=== PATIENT | female | born 1945 | race Caucasian/White ===

== ENCOUNTER → 2016-12-03 | Outpatient (CLI) | payer MEDICARE, MEDICAID ==
[~2016-12-03] MED LIST: ACET-62 PO; AMLO5TAB2 PO; ASCO500T9 PO; ASPI-557 PO; ATOR40TA PO; CALC-747 PO; CARV3.12 PO; CHOL200029 PO; CLOP75TA PO; CYAN100022 PO; DEXT15DR5 BOTH EYES; DICL100G5 TOP; EXEN2VIA SQ; FERR324T4 PO; FURO40TA5 PO; FURO80TA3 PO; GABA-192 PO; INSU100V SQ; INSU100V12 SQ; LEVO50TA4 PO; POTA-81 PO; PREG200C PO; PROP15DR BOTH EYES; SERT-77 PO; VALS160T25 PO; VIT1CAPS47 PO
--- NOTE | 2016-12-04 10:55 | DI ---
Indication: ITS.REASON: I83.029 LEG ULCER; I25.10 ATHSCL HD OF [place] CORONARY ARTERY PROCEDURE: US ARTERIAL EXTREMITY LOWER LT: Comparison: June 10, 2014 Technique: Grayscale color and duplex Doppler imaging was performed of the arterial tree of the left legs. Findings: LEFT LEG (cm/sec) Common Femoral 112 Superficial Femoral Proximal 102 Mid 64.9 Distal 44.4 Popliteal 54.2 YELITZA-prox 27.9 PACKAGING DESIGN ENGINEER-prox 83.3 YELITZA-dist 143 PACKAGING DESIGN ENGINEER-dist 86.2 There are dampened waveforms seen in the left lower extremity arteries, particularly the calf arteries but no velocity elevation or occlusion as was seen previously. IMPRESSION: 1. Interval resolution of the prior anterior tibial artery occlusion. 2. Diffuse atherosclerotic plaque with mild stenosis throughout the calf arteries. .
== END ==
LOC: IMA 09:26
PROVIDERS: ATTEND Family Medicine
DX: I70.202 Unspecified atherosclerosis of native arteries of extremities, left leg (principal); I25.10 Atherosclerotic heart disease of native coronary artery without angina pectoris

== ENCOUNTER 2017-03-03 16:02 | Inpatient (IN) ==
--- NOTE | 2017-03-03 17:40 | Emergency Department Report ---
SOB HPI - General Chief Complaint: Shortness of Breath/Dyspnea Stated Complaint: SOB Time Seen by Provider: 03/03/17 16:08 Source: patient Mode of arrival: wheelchair Limitations: no limitations - History of Present Illness She lives at [facility]. Today had onset of dyspnea about 1130 am. She normally does wear O2 overnight but not during the day. Staff did have to apply O2 due to sats in the 70s. Was placed on 2L O2 per NC and sats are up to 95%. She also was c/o some chest pressure. Does have a history of CHF and has had a heart cath in with stent placement per Dr Marie. Is currently taking Lasix BID. Complaint: shortness of breath Onset (ago): hour(s) (for the last 6 hours) Severity: moderate Consistency/Duration: constant Relieving factors: nothing Exacerbating factors: nothing Known history of: congestive heart failure Associated symptoms: chest pain Treatment prior to arrival: none - Related Data Home Medications Medication Instructions Recorded Confirmed Sertraline HCl [Zoloft] 200 mg PO DAILY #0 02/01/11 03/03/17 Aspirin [Aspir 81] 81 mg PO DAILY #0 07/08/14 03/03/17 Acetaminophen 1,500 mg PO HS #0 06/08/16 03/03/17 Calcium Carbonate/Vitamin D3 1 tab PO BID #0 06/08/16 03/03/17 [Calcium 600-Vit D3 400 Tablet] Dextran 70/Hypromellose 1 drop BOTH EYES DAILY PRN #0 06/08/16 03/03/17 [Artificial Tears Eye Drops] Diclofenac Sodium [Voltaren] 1 applic TOP BID PRN #0 06/08/16 03/03/17 Exenatide Weekly Inj [Bydureon] 2 mg SQ Q7D #0 06/08/16 03/03/17 Levothyroxine Sodium [Synthroid] 50 mcg PO ACB #0 06/08/16 03/03/17 Pregabalin [Lyrica] 200 mg PO TID #0 06/08/16 03/03/17 Valsartan 160 mg PO DAILY #0 06/08/16 03/03/17 Cyanocobalamin (Vitamin B-12) 1,000 mcg SL DAILY #0 08/09/16 03/03/17 [Vitamin B-12] Furosemide 80 mg PO WB #0 tab 11/16/16 03/03/17 Vit C/E/Zn/Coppr/Lutein/Zeaxan 1 tab PO BID #0 11/16/16 03/03/17 [Preservision Areds 2 Softgel] Carvedilol [Coreg] 3.125 mg PO WB 03/03/17 03/03/17 Cholecalciferol (Vitamin D3) 2,000 unit PO DAILY 03/03/17 03/03/17 [Vitamin D3] Ferrous Sulfate [Ferrous Sulfate] 325 mg PO DAILY 03/03/17 03/03/17 Furosemide [Lasix] 60 mg PO WS 03/03/17 03/03/17 Insulin Aspart [NovoLOG] 6 unit SQ TIDWM 03/03/17 03/03/17 Potassium Chloride ER Tab [K-Dur] 20 meq PO DAILY 03/03/17 03/03/17 Previous Rx's Medication Instructions Recorded Ascorbic Acid [Vitamin C] 500 mg PO WB #30 tab 10/18/16 Atorvastatin [Lipitor] 40 mg PO HS #30 tab 10/18/16 Clopidogrel Bisulfate [Plavix] 75 mg PO DAILY #100 tab 10/18/16 Insulin Detemir [Levemir] 15 unit SQ HS #1 vial 10/18/16 Insulin Detemir [Levemir] 20 unit SQ AMI #1 vial 10/18/16 Allergies Allergy/AdvReac Type Severity Reaction Status Date / Time Iodinated Contrast Media - Allergy Severe WHEEZING Verified 03/03/17 16:28 Oral and niacin Allergy Unknown Verified 03/03/17 16:28 pravastatin [From Pravachol] Allergy Unknown Verified 03/03/17 16:28 Review of Systems Constitutional: Denies: fever, chills, weakness Cardiovascular: Reports: chest pain, dyspnea on exertion. Denies: palpitations , edema Respiratory: Denies: cough, dyspnea, wheezes Gastrointestinal: Denies: abdominal pain, nausea, vomiting, diarrhea, constipation Neurological: Denies: headache, weakness, numbness, paresthesias PFSH Patient Stated Medical History Cataracts Yes Other HEENT Yes: WEARS GLASSES Angina Yes Congestive Heart Failure Yes Coronary Artery Disease Yes Hypertension Yes Myocardial Infarction Yes Chronic Obstructive Pulmonary Yes Disease (COPD) Pneumonia Yes Sleep Apnea Yes: WEARS BIPAP Diabetes Mellitus Type 2 Yes Gastroesophageal Reflux Yes Disease Hx Urinary Tract Infection Yes Anemia Yes Osteoarthritis Yes Anesthesia Reactions Yes: WAKES UP CRYING Blood Transfusions Yes Depression Yes Surgical History: Heart cath 10/2016 with stent placement - Social History Smoking status: Never smoker Substance use type: does not use Alcohol intake frequency: does not drink Physical Exam - General General appearance: alert, in no apparent distress - Normal Exams: Neck:: Full range of motion, without adenopathy, JVD, bruits or thyromegaly Chest/Respirations:: Clear all ramos, with good airflow, and symmetry bilaterally Cardiovascular:: Regular rate and rhythm, without murmur or gallop, Pulses 2+ all extremities, capillary refill, <2 seconds all extremities Abdomen:: Bowel sounds positive, soft, non-tender, non-distended, no hepatosplenomegaly, masses or bruits noted Lymphatic:: No lymphadenopathy, or lymphedema noted Integumentary:: No rashes, hives, or bruising noted Neurological:: Patient is alert, and oriented Psychiatric:: Patient exhibits, appropriate attention, emotion and affect - Cardiovascular Cardiovascular exam: Present: normal heart sounds, other (No pedal edema) Course Vital Signs Temperature 97.9 F 03/03/17 16:02 Pulse Rate 56 L 03/03/17 16:02 Respiratory Rate 24 03/03/17 16:02 Blood Pressure 149/67 H 03/03/17 16:02 Pulse Oximetry 95 03/03/17 16:02 Temperature 97.9 F 03/03/17 16:02 Pulse Rate 58 L 03/03/17 18:45 Respiratory Rate 24 03/03/17 16:02 Blood Pressure 176/79 H 03/03/17 18:45 Pulse Oximetry 95 03/03/17 18:45 Shortness of Breath/Dyspnea - [facility] Narrative Medical decision making narrative: Given elevation of BNP at 10,00, increased O2, chest xray showing pulmonary edema, did speak with Robyn Waggoner APRN. Will admit at this time for IV diuresis. - Differential Diagnosis Likely: congestive heart failure, community acquired pneumonia, asthma with exacerbation, pulmonary embolism - Lab Data Attestation: I reviewed the patient's lab results. Result diagrams: 03/03/17 16:37 03/03/17 16:37 Lab Results 03/03/17 03/03/17 03/03/17 Range/Units 16:37 16:37 16:37 WBC 7.6 (4.5-11.0) T/MM3 RBC 3.55 L (4.00-5.20) M/MM3 Hgb 10.4 L (12-16) GM/DL Hct 33.5 L (36-46) % MCV 94.4 (80-100) UM3 MCH 29.3 (26-34) UUG MCHC 31.0 (31-37) GM/DL RDW Std Deviation 48.0 (36.9-50.2) FL Plt Count 117 L (130-400) T/MM3 MPV 11.1 (9.4-12.4) UM3 Immature Gran % (Auto) 1.5 H (0.0-0.5) % Neut % (Auto) 72.4 H (33-66) % Lymph % (Auto) 13.2 L (23-45) % Buchanan % (Auto) 10.9 H (0-9.0) % Eos % (Auto) 1.9 (0-4) % Baso % (Auto) 0.1 (0-2) % Neut # 5.5 (1.8-7.7) T/MM3 Lymph # 1.0 (1-4.8) T/MM3 Buchanan # 0.8 (0-0.8) T/MM3 Eos # 0.1 (0-0.5) T/MM3 Baso # 0.0 (0-0.2) T/MM3 Abs Immat Gran (auto) 0.11 H (0.00-0.03) T/MM3 Turbidity < 20 (0-20) Sodium 144 (134-144) MEQ/L Potassium 4.1 (3.6-5) MEQ/L Chloride 100 (98-107) MEQ/L Carbon Dioxide 31 H (22-30) MEQ/L Anion Gap 13 (5-15) MEQ/L BUN 47.0 H (7-17) MG/DL Creatinine 1.3 H (0.7-1.2) MG/DL GFR Calculation 40 BUN/Creatinine Ratio 36 H (6-26) RATIO Glucose 255 H (65-110) MG/DL Calculated Osmolality 298 H (261-280) MOSM/KG Calcium 9.6 (8.4-10.2) MG/DL Total Bilirubin 0.30 (0.20-1.30) MG/DL Icterus Index < 2 (0-7) AST 9 L (14-36) U/L ALT 24 (9-52) U/L Alkaline Phosphatase 122 (38-126) U/L Troponin I < 0.012 (0-0.12) ng/ml B-Natriuretic Peptide 14610 H (0-175) pg/mL Total Protein 6.5 (6.3-8.2) G/DL Albumin 3.7 (3.5-5.0) G/DL Globulin 2.8 (2.4-3.6) G/DL Albumin/Globulin Ratio 1.3 (1.1-2.2) RATIO Specimen Hemolysis < 15 (0-25) - Radiology Data Attestation: I reviewed the patient's radiology results. Chest xray:moderate to severe pulmonary edema Disposition Clinical Impression: Congestive heart failure Qualifiers: Congestive heart failure type: diastolic Congestive heart failure chronicity: acute on chronic Qualified Code(s): I50.33 - Acute on chronic diastolic ( congestive) heart failure Disposition: 02 To [facility] Condition: Stable Time of Disposition: 18:43 - Seen By: midlevel
[2017-03-03] MEDS ORDERED: SALINE FLUSH 10ml SYRINGE IVF PRN (19:37)
[2017-03-03] MEDS ORDERED: INSULIN DETEMIR 100unit/ml INJECTION SQ SCH (19:37)
[2017-03-03] MEDS ORDERED: REFRESH CLASSIC Eye Drops 0.4ml EACH EYE PRN (20:06)
[2017-03-03] MEDS: CALCIUM 600 + VIT D 400 TABLET PO SCH (21:12)
[2017-03-03] MEDS: ATORVASTATIN 40 MG TABLET PO SCH (21:13)
[2017-03-03] MEDS: PREGABALIN 100 MG CAPSULE PO SCH (21:13)
[2017-03-03] MEDS: ACETAMINOPHEN 500 MG TABLET PO SCH (21:13)
[2017-03-03] MEDS: INSULIN DETEMIR 100unit/ml INJECTION SQ SCH (21:35)
[2017-03-03] MEDS ORDERED: INSULIN ASPART 100unit/ml INJECTION SQ ONE ×2 (22:05→23:18)
[2017-03-04] MEDS ORDERED: INSULIN ASPART 100unit/ml INJECTION SQ ONE ×2 (00:50→12:05)
[2017-03-04] MEDS: LEVOTHYROXINE 50 MCG TABLET PO SCH (06:10)
--- NOTE | 2017-03-04 08:19 | XRay Report ---
INDICATION: dyspnea PROCEDURE: CHEST 2-VIEWS UPRIGHT (PA & LAT) Encounter: Initial COMPARISON: October 15, 2016 FINDINGS: Worsening bilateral patchy airspace opacities. The costophrenic angles are not seen on the lateral view and small pleural effusions cannot be excluded. No pneumothorax. Cardiac silhouette remains mild to moderately enlarged. Mediastinal contours are grossly stable. Pulmonary vascular congestion has worsened. Impression: Worsening severe pulmonary edema, possibly due to CHF. .
[2017-03-04] MEDS: SALINE FLUSH 10ml SYRINGE IVF PRN ×3 (09:10→19:56)
[2017-03-04] MEDS: ASCORBIC ACID 500 MG TABLET PO SCH (09:13)
[2017-03-04] MEDS: ASPIRIN *EC* 81 MG TABLET PO SCH (09:13)
[2017-03-04] MEDS: CALCIUM 600 + VIT D 400 TABLET PO SCH ×2 (09:14→21:23)
[2017-03-04] MEDS: MULTI-VITAMIN + MINERAL TABLET PO SCH ×2 (09:14→21:23)
[2017-03-04] MEDS: CLOPIDOGREL 75 MG TABLET PO SCH (09:14)
[2017-03-04] MEDS: SERTRALINE 100 MG TABLET PO SCH (09:14)
[2017-03-04] MEDS: CARVEDILOL 3.125 MG TABLET PO SCH (09:15)
[2017-03-04] MEDS: PREGABALIN 100 MG CAPSULE PO SCH ×3 (09:15→21:23)
[2017-03-04] MEDS: VALSARTAN 160 MG TABLET PO SCH (09:15)
[2017-03-04] MEDS: INSULIN ASPART 100unit/ml INJECTION SQ SCH ×3 (09:23→18:03)
--- NOTE | 2017-03-04 10:55 | Cardiology History & Physical ---
History of Present Illness Chief complaint: dyspnea HPI: Atiya is a 71 year olf female who is well known to Dr. Marie who has a history of CAD with bare metal stent to the RCA on 10/07/16 and 2 drug-eluting stents to the LAD on 11/16/16. She also has carotid artery stenosis, HTN, HLD, and DM II. She lives at [facility] and had had onset of dyspnea about 1130 am yeaterday. She normally does wear O2 overnight but not during the day. Staff had to apply O2 due to sats in the 70s. Was placed on 2L O2 per NC and sats are up to 95%. She also c/o some chest pressure. Does have a history of CHF and is currently taking Lasix BID. She was admitted to Dr. Marie for observation and diuresis. Atiya is seen in her room on Medical this morning. She reports SOA really began last Tuesday with increasing O2 requirements since then. She denies chest pain or pressure, palpitations, dizziness or near syncope. She states she had an elevated temperature a few days ago and was told she had a urinary infection. She reports her blood sugars have been higher than she likes, some even over 200, but the nursing staff doesn't seem too concerned about this. Review of Systems - Constitutional Constitutional: Present: fever(s) (a few days ago). Absent: chills, fatigue, lethargy, weakness - EENMT Eyes: Absent: change in vision Balance: Absent: vertigo Mouth/Throat: Absent: sore throat - Cardiovascular Cardiovascular: Absent: chest pain, palpitations, syncope Vascular: Present: pedal edema - Respiratory Respiratory: Present: dyspnea. Absent: cough - Gastrointestinal Gastrointestinal: Absent: diarrhea, nausea, vomiting - Genitourinary Genitourinary: Present: as per HPI - Integumentary/Breasts Integumentary: Absent: rash - Neurological Neurological: Absent: dizziness PFSH Patient Stated Medical History Cataracts Yes Other HEENT Yes: WEARS GLASSES Angina Yes Congestive Heart Failure Yes Coronary Artery Disease Yes Hypertension Yes Myocardial Infarction Yes Mixed hyperlipidemia Yes Pneumonia Yes Sleep Apnea Yes: WEARS BIPAP Diabetes Mellitus Type 2 Yes Gastroesophageal Reflux Yes Disease Hx Urinary Tract Infection Yes Anemia Yes Osteoarthritis Yes Cellulitis Yes Anesthesia Reactions Yes: WAKES UP CRYING Blood Transfusions Yes Depression Yes Surgical History: Heart cath 10/07/16 bare metal Stent RCA. 11/16/2016 with drug- eluting stents X2 LAD. Total hysterectomy. Tonsilectomy Family History: DM Type II - Father and Mother CAD- Mother - Social History Smoking status: Never smoker Substance use type: does not use Alcohol intake frequency: does not drink Housing: correction Current occupational status: retired Current residence: [place] Medications Home Medications Medication Instructions Recorded Confirmed Type Sertraline HCl [Zoloft] 200 mg PO DAILY #0 02/01/11 03/03/17 History Aspirin [Aspir 81] 81 mg PO DAILY #0 07/08/14 03/03/17 History Acetaminophen 1,500 mg PO HS #0 06/08/16 03/03/17 History Calcium Carbonate/Vitamin D3 1 tab PO BID #0 06/08/16 03/03/17 History [Calcium 600-Vit D3 400 Tablet] Dextran 70/Hypromellose 1 drop BOTH EYES DAILY PRN #0 06/08/16 03/03/17 History [Artificial Tears Eye Drops] Diclofenac Sodium [Voltaren] 1 applic TOP BID PRN #0 06/08/16 03/03/17 History Exenatide Weekly Inj [Bydureon] 2 mg SQ Q7D #0 06/08/16 03/03/17 History Levothyroxine Sodium [Synthroid] 50 mcg PO ACB #0 06/08/16 03/03/17 History Pregabalin [Lyrica] 200 mg PO TID #0 06/08/16 03/03/17 History Valsartan 160 mg PO DAILY #0 06/08/16 03/03/17 History Cyanocobalamin (Vitamin B-12) 1,000 mcg SL DAILY #0 08/09/16 03/03/17 History [Vitamin B-12] Vit C/E/Zn/Coppr/Lutein/Zeaxan 1 tab PO BID #0 11/16/16 03/03/17 History [Preservision Areds 2 Softgel] Carvedilol [Coreg] 3.125 mg PO WB 03/03/17 03/03/17 History Cholecalciferol (Vitamin D3) 2,000 unit PO DAILY 03/03/17 03/03/17 History [Vitamin D3] Ferrous Sulfate 325 mg PO DAILY 03/03/17 03/03/17 History Insulin Aspart [NovoLOG] 6 unit SQ TIDWM 03/03/17 03/03/17 History Potassium Chloride ER Tab [K-Dur] 20 meq PO DAILY 03/03/17 03/03/17 History Allergies Allergy/AdvReac Type Severity Reaction Status Date / Time Iodinated Contrast Media - Allergy Severe WHEEZING Verified 03/03/17 16:28 Oral and niacin AdvReac Unknown Hot Verified 03/04/17 14:00 Flushing pravastatin [From Pravachol] AdvReac Unknown Muscle Pain Verified 03/04/17 14:00 Exam Vital signs: Temp Pulse Resp BP Pulse Ox 96.2 F L 63 18 162/79 H 95 03/04/17 08:00 03/04/17 08:00 03/04/17 08:00 03/04/17 08:00 03/04/17 08:00 - Constitutional no acute distress, morbidly obese, cooperative - Routine HEENT Exam ENT: Present: mucous membranes moist - Routine Neck Exam Absent: JVD, carotid bruit - Routine Chest/Breast/Axilla Exam Chest wall: Absent: tenderness - Routine Respiratory Exam Present: CTA bilaterally. Absent: rales, wheezes - Routine Cardiovascular Exam Present: no murmur, bradycardia - Routine Abdominal Exam Present: soft, normoactive bowel sounds, non tender - Routine Extremities Exam Present: no edema - Routine Skin Exam Present: intact - Routine Neurological Exam Present: alert, oriented X3 - Routine Psychiatric Exam Present: normal affect, normal thought process Results 03/06/17 04:48 03/06/17 04:48 Cardiac Enzymes 03/04/17 Range/Units 04:52 B-Natriuretic Peptide 49669 H (0-175) pg/mL Coagulation 03/04/17 Range/Units 04:52 B-Natriuretic Peptide 24735 H (0-175) pg/mL CBC 03/04/17 Range/Units 04:52 WBC 7.3 (4.5-11.0) T/MM3 RBC 3.45 L (4.00-5.20) M/MM3 Hgb 10.1 L (12-16) GM/DL Hct 32.4 L (36-46) % Plt Count 121 L (130-400) T/MM3 Neut # 5.1 (1.8-7.7) T/MM3 Lymph # 1.3 (1-4.8) T/MM3 Davis # 0.8 (0-0.8) T/MM3 Eos # 0.1 (0-0.5) T/MM3 Baso # 0.0 (0-0.2) T/MM3 Comprehensive Metabolic Panel 03/04/17 Range/Units 04:52 Sodium 147 H (134-144) MEQ/L Potassium 3.5 L (3.6-5) MEQ/L Chloride 102 (98-107) MEQ/L Carbon Dioxide 32 H (22-30) MEQ/L BUN 47.0 H (7-17) MG/DL Creatinine 1.3 H (0.7-1.2) MG/DL Glucose 101 (65-110) MG/DL Calcium 9.8 (8.4-10.2) MG/DL Intake and Output 03/03/17 03/04/17 03/04/17 22:59 06:59 14:59 Intake Total 800 / 800 Output Total 1100 / 1100 Balance -300 / -300 Intake: Oral 800 / 800 Output: Urine 0 / 0 Urine Amount (Catheter) 1100 / 1100 Other: # Incontinent Voids 2 # Incontinent Bowel 1 Movements Weight 313 lb 11.485 oz 311 lb 4.683 oz Patient Weight 03/05/17 06:59 Weight 311 lb 4.683 oz Laboratory Results - last 48 hr 03/03/17 03/03/17 03/03/17 16:37 16:37 16:37 WBC 7.6 RBC 3.55 L Hgb 10.4 L Hct 33.5 L MCV 94.4 MCH 29.3 MCHC 31.0 RDW Std Deviation 48.0 Plt Count 117 L MPV 11.1 Immature Gran % (Auto) 1.5 H Neut % (Auto) 72.4 H Lymph % (Auto) 13.2 L Davis % (Auto) 10.9 H Eos % (Auto) 1.9 Baso % (Auto) 0.1 Neut # 5.5 Lymph # 1.0 Davis # 0.8 Eos # 0.1 Baso # 0.0 Abs Immat Gran (auto) 0.11 H Turbidity < 20 Sodium 144 Potassium 4.1 Chloride 100 Carbon Dioxide 31 H Anion Gap 13 BUN 47.0 H Creatinine 1.3 H GFR Calculation 40 BUN/Creatinine Ratio 36 H Glucose 255 H Glucometer Calculated Osmolality 298 H Calcium 9.6 Magnesium Total Bilirubin 0.30 Icterus Index < 2 AST 9 L ALT 24 Alkaline Phosphatase 122 Troponin I < 0.012 B-Natriuretic Peptide 43851 H Total Protein 6.5 Albumin 3.7 Globulin 2.8 Albumin/Globulin Ratio 1.3 Specimen Hemolysis < 15 03/03/17 03/03/17 03/04/17 21:31 23:07 00:43 WBC RBC Hgb Hct MCV MCH MCHC RDW Std Deviation Plt Count MPV Immature Gran % (Auto) Neut % (Auto) Lymph % (Auto) Davis % (Auto) Eos % (Auto) Baso % (Auto) Neut # Lymph # Davis # Eos # Baso # Abs Immat Gran (auto) Turbidity Sodium Potassium Chloride Carbon Dioxide Anion Gap BUN Creatinine GFR Calculation BUN/Creatinine Ratio Glucose Glucometer 286 257 230 Calculated Osmolality Calcium Magnesium Total Bilirubin Icterus Index AST ALT Alkaline Phosphatase Troponin I B-Natriuretic Peptide Total Protein Albumin Globulin Albumin/Globulin Ratio Specimen Hemolysis 03/04/17 03/04/17 03/04/17 04:52 04:52 04:52 WBC 7.3 RBC 3.45 L Hgb 10.1 L Hct 32.4 L MCV 93.9 MCH 29.3 MCHC 31.2 RDW Std Deviation 47.7 Plt Count 121 L MPV 11.6 Immature Gran % (Auto) 1.0 H Neut % (Auto) 69.5 H Lymph % (Auto) 17.2 L Davis % (Auto) 10.7 H Eos % (Auto) 1.5 Baso % (Auto) 0.1 Neut # 5.1 Lymph # 1.3 Davis # 0.8 Eos # 0.1 Baso # 0.0 Abs Immat Gran (auto) 0.07 H Turbidity < 20 Sodium 147 H Potassium 3.5 L Chloride 102 Carbon Dioxide 32 H Anion Gap 13 BUN 47.0 H Creatinine 1.3 H GFR Calculation 40 BUN/Creatinine Ratio 36 H Glucose 101 Glucometer Calculated Osmolality 294 H Calcium 9.8 Magnesium 2.3 Total Bilirubin Icterus Index < 2 AST ALT Alkaline Phosphatase Troponin I B-Natriuretic Peptide 81968 H Total Protein Albumin Globulin Albumin/Globulin Ratio Specimen Hemolysis < 15 03/04/17 03/04/17 04:52 06:16 WBC RBC Hgb Hct MCV MCH MCHC RDW Std Deviation Plt Count MPV Immature Gran % (Auto) Neut % (Auto) Lymph % (Auto) Davis % (Auto) Eos % (Auto) Baso % (Auto) Neut # Lymph # Davis # Eos # Baso # Abs Immat Gran (auto) Turbidity Sodium Potassium Chloride Carbon Dioxide Anion Gap BUN Creatinine GFR Calculation BUN/Creatinine Ratio Glucose Glucometer 135 Calculated Osmolality Calcium Magnesium Total Bilirubin Icterus Index AST ALT Alkaline Phosphatase Troponin I < 0.012 B-Natriuretic Peptide Total Protein Albumin Globulin Albumin/Globulin Ratio Specimen Hemolysis < 15 - Imaging and Cardiology Echo: pending EKG results: image reviewed Imaging & Cardiology Narrative: Date of Exam: 03/03/17 Ordering Provider: Grace Dallas APRN Type of Exam(s): XR chest 2V Reason for Exam(s): dyspnea INDICATION: dyspnea PROCEDURE: CHEST 2-VIEWS UPRIGHT (PA & LAT) Encounter: Initial COMPARISON: October 15, 2016 FINDINGS: Worsening bilateral patchy airspace opacities. The costophrenic angles are not seen on the lateral view and small pleural effusions cannot be excluded. No pneumothorax. Cardiac silhouette remains mild to moderately enlarged. Mediastinal contours are grossly stable. Pulmonary vascular congestion has worsened. Impression: Worsening severe pulmonary edema, possibly due to CHF. 03/04/17 11:41 - EKG Interpretation EKG: sinus rhythm EKG shows: bradycardia EKG interpretations - Dysrhythmias Sinus rhythms and dysrhythmias: sinus rhythm - Blocks, axis, hypertrophy, ST abn QRS axis and voltage: left axis deviation (-30 to -90) Chamber hypertrophy or enlargement: left ventricular hypertrophy or enlargement (LVE) Hospital Course Hospital course: Recommendation After examining the patient I agree with the above assessment. I am involved in the formulation of the patient's plan of care. DVT Prophylaxis: Lovenox Assessment and Plan (1) Diastolic CHF Start date: 03/03/17 Problem details: EF 65% Status: Acute Bumex 2mg IV Q6H for diuresis. Huntley cath for accurate I&Os. Daily Weight. Monitor Renal and Electrolytes. Pain denies chest pain but has diabetes. Serial troponin levels. EKG with nonspecific STT changes (2) Atherosclerotic heart disease of [place] coronary artery without angina pectoris Status: Chronic Bare metal stent to the RCA on 10/07/16 and 2 drug-eluting stents to the LAD on . Continue dual anti-platelet therapy with Plavix and Aspirin. (3) Essential (primary) hypertension Status: Chronic Poor control. Continue Diovan. Cannot increase Coreg as is bradycardic, will add Amlodipine 5mg daily. increase to 10mg in am (4) Mixed hyperlipidemia Status: Chronic Continue Atorvastatin (5) Type 2 diabetes mellitus without complications Status: Chronic Continue home insulin. Will give additional as needed for BGMs >200 (6) Occlusion and stenosis of unspecified carotid artery Status: Chronic Carotid doppler scheduled for 06/08/17 Sepsis Assessment - Evaluation Sepsis screening result: No Definite Risk - Focused Exam Vital Signs Temp Pulse Resp BP Pulse Ox 03/04/17 08:00 96.2 F L 63 18 162/79 H 95 03/04/17 00:00 97.3 F 54 L 20 168/61 H 93
[2017-03-04] MEDS ORDERED: AMLODIPINE 5 MG TABLET PO SCH (12:00)
[2017-03-04] MEDS: ENOXAPARIN 40 MG/0.4 ML INJECTION SQ SCH (12:53)
[2017-03-04] MEDS ORDERED: PNEUMOCOCCAL 23 VACCINE 0.5ml INJECTION IM ONE (13:09)
[2017-03-04] MEDS ORDERED: AMLODIPINE 5 MG TABLET PO ONE (17:58)
--- NOTE | 2017-03-04 19:49 | Echocardiogram ---
DATE OF PROCEDURE 03/04/2017 INDICATION This is a two-dimensional echo with spectral Doppler, color-flow, and M-mode. It was obtained in a patient with shortness of breath. DESCRIPTION OF PROCEDURE Left atrium is dilated. Left ventricular end-diastolic dimension is normal. Left ventricular wall thickness is increased. LV systolic function is normal with ejection fraction of about 50% to 55%. Right atrium is normal. Right ventricle is normal. Aortic root dimension is mildly increased. Mitral valve annulus is calcified. Mitral valve leaflets are normal with mild mitral regurgitation. Aortic valve is a trileaflet structure with fibrocalcific changes with no stenosis. Trace of aortic insufficiency is present. Tricuspid valve shows mild tricuspid regurgitation with normal estimated pulmonary artery systolic pressure of 27. Pulmonary valve shows trace of pulmonary insufficiency. There is no pericardial effusion. IMPRESSION 1. Normal LV systolic function with ejection fraction of about 50% to 55%. 2. Left ventricular hypertrophy. 3. Left atrial dilation. 4. Mild aortic root dilation. 5. Mitral annulus calcification with mild mitral regurgitation. 6. Aortic sclerosis with trace of aortic insufficiency. 7. Mild tricuspid regurgitation with normal estimated pulmonary artery systolic pressure of 27. 8. Trace of pulmonary insufficiency. MTDD
[2017-03-04] MEDS: ATORVASTATIN 40 MG TABLET PO SCH (21:24)
[2017-03-04] MEDS: ACETAMINOPHEN 500 MG TABLET PO SCH (21:24)
[2017-03-04] MEDS: INSULIN DETEMIR 100unit/ml INJECTION SQ SCH (22:43)
[2017-03-05] MEDS: LEVOTHYROXINE 50 MCG TABLET PO SCH (06:45)
[2017-03-05] MEDS: ASCORBIC ACID 500 MG TABLET PO SCH (09:30)
[2017-03-05] MEDS: BUMETANIDE 2.5mg/10ml INJECTION IV SCH ×3 (09:33→23:28)
[2017-03-05] MEDS: CLOPIDOGREL 75 MG TABLET PO SCH (09:34)
[2017-03-05] MEDS: VALSARTAN 160 MG TABLET PO SCH (09:34)
[2017-03-05] MEDS: PREGABALIN 100 MG CAPSULE PO SCH ×3 (09:34→23:19)
[2017-03-05] MEDS: AMLODIPINE 10 MG TABLET PO SCH (09:34)
[2017-03-05] MEDS: ASPIRIN *EC* 81 MG TABLET PO SCH (09:34)
[2017-03-05] MEDS: MULTI-VITAMIN + MINERAL TABLET PO SCH ×2 (09:34→23:19)
[2017-03-05] MEDS: SERTRALINE 100 MG TABLET PO SCH (09:35)
[2017-03-05] MEDS: ENOXAPARIN 40 MG/0.4 ML INJECTION SQ SCH (09:36)
[2017-03-05] MEDS: CARVEDILOL 3.125 MG TABLET PO SCH (09:36)
[2017-03-05] MEDS: INSULIN ASPART 100unit/ml INJECTION SQ SCH ×3 (09:36→17:37)
[2017-03-05] MEDS: CALCIUM 600 + VIT D 400 TABLET PO SCH ×2 (09:50→23:19)
[2017-03-05] MEDS: INSULIN DETEMIR 100unit/ml INJECTION SQ SCH (20:37)
[2017-03-05] MEDS: ATORVASTATIN 40 MG TABLET PO SCH (23:20)
[2017-03-05] MEDS: ACETAMINOPHEN 500 MG TABLET PO SCH (23:24)
--- NOTE | 2017-03-05 23:56 | Cardiology Progress Note ---
Subjective Principal diagnosis: acute diastolic heart failure. Interval history: Pt is bedbound. She was is using O2 at 2 LNC day and 4L bleed in her CPAP at night this is the same O2 requirements as at her residence at [facility]. She has good U/O with the bumex 2mg IV q 6hr. She feels better and orthopnea is resolved. edema is improved this evening. she will be ready fo DC to [facility] tomorrow , I believe. Exam Vital signs: Temp Pulse Resp BP Pulse Ox 96.9 F 59 L 20 159/69 H 93 03/05/17 15:16 03/05/17 15:16 03/05/17 15:16 03/05/17 15:16 03/05/17 15:16 - Constitutional no acute distress, well nourished, morbidly obese, cooperative - Routine Neck Exam Absent: JVD - Routine Respiratory Exam Present: decreased breath sounds (in bases), CTA bilaterally - Routine Cardiovascular Exam Present: RRR - Routine Extremities Exam Present: edema (mild in ankles. ) Comments: pedal pulses palpable. - Routine Back/Spine/Pelvis Exam Comments: bed bound. she does not walk. - Routine Skin Exam Present: intact, dry, warm Comments: no rash or ulcers. per RN her skin looks good and well cared for. - Routine Neurological Exam Present: alert, oriented X3, motor deficit - Routine Psychiatric Exam Present: normal affect, normal thought process, cooperative, good insight, good judgment - Urinary Catheter Management Urethral Cath placed during this visit: yes Insertion date: 03/03/17 Insertion time: 23:00 Hospital Course Hospital course: Ms. Blum is a 71 year old female Progress Note-A&P (1) Atherosclerotic heart disease of [place] coronary artery without angina pectoris Status: Chronic Current Visit: Yes (2) Essential (primary) hypertension Status: Chronic Current Visit: Yes (3) Mixed hyperlipidemia Status: Chronic Current Visit: Yes (4) Type 2 diabetes mellitus without complications Status: Chronic Current Visit: Yes (5) Occlusion and stenosis of unspecified carotid artery Status: Chronic Current Visit: Yes (6) Diastolic CHF Problem details: EF 65% Status: Acute Assessment and plan: Good U/O with diuresis. Cont Bumex 2mg IV q 6 hr today. Will change to Bumex 2mg po BID tomorrow. Monitor I/O, Wts, lytes and renal function. Current Visit: Yes - Time Spent With Patient Total time spent is greater than 50% in coordination of care (as documented) at patient's floor/unit and/or counseling patient: Sepsis Assessment - Evaluation Sepsis screening result: No Definite Risk - Focused Exam Vital Signs Temp Pulse Resp BP Pulse Ox 03/05/17 15:16 96.9 F 59 L 20 159/69 H 93 Respiratory exam: Present: CTA bilaterally. Absent: rales, wheezes Cardiovascular exam: Present: no murmur, bradycardia
[2017-03-06] MEDS: INSULIN DETEMIR 100unit/ml INJECTION SQ SCH (01:06)
[2017-03-06] MEDS: BUMETANIDE 2.5mg/10ml INJECTION IV SCH ×2 (03:53→15:13)
[2017-03-06] MEDS: INSULIN ASPART 100unit/ml INJECTION SQ PRN ×3 (07:05→17:35)
[2017-03-06] MEDS: LEVOTHYROXINE 50 MCG TABLET PO SCH (07:05)
[2017-03-06] MEDS: ENOXAPARIN 40 MG/0.4 ML INJECTION SQ SCH (09:21)
[2017-03-06] MEDS: CARVEDILOL 3.125 MG TABLET PO SCH (09:22)
[2017-03-06] MEDS: ASCORBIC ACID 500 MG TABLET PO SCH (09:22)
[2017-03-06] MEDS: SERTRALINE 100 MG TABLET PO SCH (09:23)
[2017-03-06] MEDS: ASPIRIN *EC* 81 MG TABLET PO SCH (09:23)
[2017-03-06] MEDS: AMLODIPINE 10 MG TABLET PO SCH (09:23)
[2017-03-06] MEDS: PREGABALIN 100 MG CAPSULE PO SCH ×2 (09:23→15:35)
[2017-03-06] MEDS: CLOPIDOGREL 75 MG TABLET PO SCH (09:23)
[2017-03-06] MEDS: MULTI-VITAMIN + MINERAL TABLET PO SCH (09:24)
[2017-03-06] MEDS: CALCIUM 600 + VIT D 400 TABLET PO SCH (09:24)
[2017-03-06] MEDS: VALSARTAN 160 MG TABLET PO SCH (09:24)
[2017-03-06] MEDS: INSULIN ASPART 100unit/ml INJECTION SQ SCH ×3 (10:54→17:52)
--- NOTE | 2017-03-06 15:48 | Discharge Summary ---
Discharge Information Date of admission: 03/04/17 17:56 Anticipated date of discharge: 03/06/17 Attending Physician: Lakhwinder Marie MD Primary care physician: Cristo Pulliam MD - Discharge Diagnosis (1) Atherosclerotic heart disease of [place] coronary artery without angina pectoris Status: Chronic (2) Essential (primary) hypertension Status: Chronic (3) Mixed hyperlipidemia Status: Chronic (4) Type 2 diabetes mellitus without complications Status: Chronic (5) Occlusion and stenosis of unspecified carotid artery Status: Chronic (6) Diastolic CHF Problem Details: EF 65% Status: Acute - Procedures Procedures: 03/04/2017 echo IMPRESSION 1. Normal LV systolic function with ejection fraction of about 50% to 55%. 2. Left ventricular hypertrophy. 3. Left atrial dilation. 4. Mild aortic root dilation. 5. Mitral annulus calcification with mild mitral regurgitation. 6. Aortic sclerosis with trace of aortic insufficiency. 7. Mild tricuspid regurgitation with normal estimated pulmonary artery systolic pressure of 27. 8. Trace of pulmonary insufficiency. - Laboratory Labs: 03/06/17 04:48 03/06/17 04:48 Abnormal Labs 03/03/17 03/03/17 03/03/17 16:37 16:37 16:37 RBC 3.55 L Hgb 10.4 L Hct 33.5 L MCHC Plt Count 117 L Immature Gran % (Auto) 1.5 H Neut % (Auto) 72.4 H Lymph % (Auto) 13.2 L [place] % (Auto) 10.9 H [place] # Abs Immat Gran (auto) 0.11 H Sodium Potassium Carbon Dioxide 31 H BUN 47.0 H Creatinine 1.3 H BUN/Creatinine Ratio 36 H Glucose 255 H Calculated Osmolality 298 H Magnesium AST 9 L B-Natriuretic Peptide 42825 H Ur Specific [place] Ur Leukocyte Esterase Urine Bacteria 03/04/17 03/04/17 03/04/17 04:52 04:52 04:52 RBC 3.45 L Hgb 10.1 L Hct 32.4 L MCHC Plt Count 121 L Immature Gran % (Auto) 1.0 H Neut % (Auto) 69.5 H Lymph % (Auto) 17.2 L [place] % (Auto) 10.7 H [place] # Abs Immat Gran (auto) 0.07 H Sodium 147 H Potassium 3.5 L Carbon Dioxide 32 H BUN 47.0 H Creatinine 1.3 H BUN/Creatinine Ratio 36 H Glucose Calculated Osmolality 294 H Magnesium AST B-Natriuretic Peptide 15376 H Ur Specific [place] Ur Leukocyte Esterase Urine Bacteria 03/04/17 03/05/17 03/05/17 12:11 05:31 05:31 RBC 3.65 L Hgb 10.5 L Hct 34.4 L MCHC 30.5 L Plt Count Immature Gran % (Auto) Neut % (Auto) Lymph % (Auto) [place] % (Auto) [place] # Abs Immat Gran (auto) Sodium 148 H Potassium Carbon Dioxide 33 H BUN 48.0 H Creatinine 1.3 H BUN/Creatinine Ratio 37 H Glucose 205 H Calculated Osmolality 303 H Magnesium 2.4 H AST B-Natriuretic Peptide Ur Specific [place] 1.010 L Ur Leukocyte Esterase 1+ A Urine Bacteria Trace H 03/06/17 03/06/17 04:48 04:48 RBC 3.42 L Hgb 10.0 L Hct 32.0 L MCHC Plt Count Immature Gran % (Auto) 1.1 H Neut % (Auto) 70.5 H Lymph % (Auto) 15.1 L [place] % (Auto) 11.8 H [place] # 0.9 H Abs Immat Gran (auto) 0.09 H Sodium Potassium Carbon Dioxide 31 H BUN 53.0 H* Creatinine 1.4 H D BUN/Creatinine Ratio 38 H Glucose 215 H Calculated Osmolality 293 H Magnesium AST B-Natriuretic Peptide 01778 H Ur Specific [place] Ur Leukocyte Esterase Urine Bacteria - Radiology Radiology: 03/03/2017 CXR FINDINGS: Worsening bilateral patchy airspace opacities. The costophrenic angles are not seen on the lateral view and small pleural effusions cannot be excluded. No pneumothorax. Cardiac silhouette remains mild to moderately enlarged. Mediastinal contours are grossly stable. Pulmonary vascular congestion has worsened. Impression: Worsening severe pulmonary edema, possibly due to CHF. History of Present Illness HPI: 03/06/17 15:56 Atiya is a 71 year olf female who is well known to Dr. Marie who has a history of CAD with bare metal stent to the RCA on 10/07/16 and 2 drug-eluting stents to the LAD on 11/16/16. She also has carotid artery stenosis, HTN, HLD, and DM II. She lives at [facility] and had had onset of dyspnea about 1130 am yeaterday. She normally does wear O2 overnight but not during the day. Staff had to apply O2 due to sats in the 70s. Was placed on 2L O2 per NC and sats are up to 95%. She also c/o some chest pressure. Does have a history of CHF and is currently taking Lasix BID. She was admitted to Dr. Marie for observation and diuresis. Atiya is seen in her room on Medical this morning. She reports SOA really began last Tuesday with increasing O2 requirements since then. She denies chest pain or pressure, palpitations, dizziness or near syncope. She states she had an elevated temperature a few days ago and was told she had a urinary infection. She reports her blood sugars have been higher than she likes, some even over 200, but the nursing staff doesn't seem too concerned about this. Hospital Course Hospital course: Ms. Blum is a 71 year old female Echo showed good LV function, she has diastolic dysfunction causing her symptoms of SOB, hypoxia and edema. She was placed on O2 and diuresed with Bumex 2mg IV q6hr. [place] placed for accurate U/O. When she was diuresed sufficiently with good U/O, her Cr and BUN elevated and the Bumex was changed to Bumex 2mg po BID on DC. We stopped her high dose lasix since it was not sufficiently diuresing her. She was instructed on heart failure: low salt. drink when thirsty. and decrease calories. She is not ambulatory and must be lifted into chair. Encouraged any activity. On day of DC she feels well and is back to baseline. She requires O2 at 2LNC day. She requires O2 at 2-4L via CPAP and night. She states she wears 2LNC at times and sometimes is on room air at the facilty. Arrangements by nursing to transport her back to [facility] where she lives , in stable condition. BMP in 1 week. DVT Prophylaxis: SCD's Discharge Plan - Med Rec/Dispo Truven Instructions: Heart Failure (GEN) Additional Instructions: BMP in 1 week. Prescriptions: New Bumetanide Tab [Bumex] 2 mg PO [id number] Continue Aspirin [Aspir 81] 81 mg PO DAILY #0 Diclofenac Sodium [Voltaren] 1 applic TOP BID PRN #0 PRN Reason: Pain Levothyroxine Sodium [Synthroid] 50 mcg PO ACB #0 Cyanocobalamin (Vitamin B-12) [Vitamin B-12] 1,000 mcg SL DAILY #0 Clopidogrel Bisulfate [Plavix] 75 mg PO DAILY #100 tab Atorvastatin [Lipitor] 40 mg PO HS #30 tab Insulin Detemir [Levemir] 20 unit SQ AMI #1 vial Insulin Detemir [Levemir] 15 unit SQ HS #1 vial Vit C/E/Zn/Coppr/Lutein/Zeaxan [Preservision Areds 2 Softgel] 1 tab PO BID # 0 Ferrous Sulfate 325 mg PO DAILY Potassium Chloride ER Tab [K-Dur] 20 meq PO DAILY Insulin Aspart [NovoLOG] 6 unit SQ TIDWM Sertraline HCl [Zoloft] 200 mg PO DAILY #0 Exenatide Weekly Inj [Bydureon] 2 mg SQ Q7D #0 Dextran 70/Hypromellose [Artificial Tears Eye Drops] 1 drop BOTH EYES DAILY PRN #0 PRN Reason: Dry Eyes Calcium Carbonate/Vitamin D3 [Calcium 600-Vit D3 400 Tablet] 1 tab PO BID #0 Pregabalin [Lyrica] 200 mg PO TID #0 Valsartan 160 mg PO DAILY #0 Acetaminophen 1,500 mg PO HS #0 Ascorbic Acid [Vitamin C] 500 mg PO WB #30 tab Carvedilol [Coreg] 3.125 mg PO WB Cholecalciferol (Vitamin D3) [Vitamin D3] 2,000 unit PO DAILY Discontinued Furosemide 80 mg PO WB #0 tab Furosemide [Lasix] 60 mg PO WS - Disposition 04 To [facility] Home/Facility - Attestation Attestation Narrative: 03/06/17 16:08 Pt was not seen by Dr. Marie but he agrees with plan of care and discharge to facility.
--- NOTE | 2017-03-06 15:55 | Extended Care Facility Orders ---
Admission Orders Admit to:: [facility] Allergies/Adverse Reactions: Allergies Iodinated Contrast Media - Oral and Allergy (Severe, Verified 03/03/17 16:28) WHEEZING niacin Adverse Reaction (Unknown, Verified 03/04/17 14:00) Hot Flushing pravastatin [From Pravachol] Adverse Reaction (Unknown, Verified 03/04/17 14:00) Muscle Pain Admitting Diagnosis: Diastolic HF Admitting Physician: Lakhwinder Marie MD Attending Physician: Lakhwinder Marie MD Anticiapted Length of Stay: greater than 30 days Rehab Potential: good Rehab Prognosis: good Diet: diabetic and cardiac diet May use Facility Protocol or Standing Orders: Yes Evaluations/Treatment: as needed Snf Certification: I certify that SNF services are required to be given on an Inpatient basis because of the patients need for alf care on a continuing basis for the condition(s) for which he/she received inpatient hospital services prior to his/her transfer to the SNF. SNF inpatient care is necessary for the following reasons - Additional Information In Event of Arrest: Do Not Start CPR Resident is Aware of Diagnosis: Yes
[2017-03-07] MEDS ORDERED: BUMETANIDE 1 MG TABLET PO SCH (09:00)
--- NOTE | 2017-03-07 11:38 | XRay Report ---
EXAM: XR chest 2V HISTORY: pulmary edema LOCATION OF DICTATION: Go COMPARISON: Prior examination dated 03/03/2017 FINDINGS: The heart is again noted to be enlarged. The trachea is midline is no evidence mediastinal widening. There is slight interval improvement in the pulmonary vascular congestion and interstitial edema. Costophrenic angles remain clear. The bony thorax appears stable. There is artifact from cardiac monitoring lead wires over the chest. IMPRESSION: 1. Slight improvement in the changes of pulmonary edema/ congestive heart failure. .
== END 2017-03-06 18:25 | DRG 293 ==
LOC: MED 16:02 → ED 16:02 → SRG 16:02 → MED 18:19 → SRG 19:15 → MED 19:15 → UNDODISIN 03-06 18:25
PROVIDERS: ADMIT Internal Medicine Cardiovascular Disease; ATTEND Internal Medicine Cardiovascular Disease